=== PATIENT | female | born 1990 | race Asian ===

== ENCOUNTER 2018-02-15 11:05 | Observation (INO) | payer OTHER | END 2018-02-15 12:15 | disposition home or self-care (01) | LOC: FLD 11:05 | PROVIDERS: ADMIT Obstetrics & Gynecology; ATTEND Obstetrics & Gynecology | DX: Z03.79 Encounter for other suspected maternal and fetal conditions ruled out (principal) | CPT/HCPCS: 59025; G0378 ==

== ENCOUNTER 2018-02-17 07:45 | Observation (INO) | payer OTHER | END 2018-02-17 08:50 | disposition home or self-care (01) | LOC: FLD 07:45 | PROVIDERS: ADMIT Obstetrics & Gynecology; ATTEND Obstetrics & Gynecology | DX: O26.853 Spotting complicating pregnancy, third trimester (principal); Z3A.40 40 weeks gestation of pregnancy | CPT/HCPCS: G0378 ==